=== PATIENT | female | born 2005 | race Caucasian/White ===

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

== ENCOUNTER 2024-10-11 09:41 | Outpatient (CLI) | payer OTHER, SELFPAY ==
[2024-10-11 09:47] LABS: HCT 38.3 % (36.0-46.0); HGB 12.6 g/dL (11.2-15.7); MCH 30.4 pg (27.0-33.0); MCHC 32.9 % (32.0-36.0); MCV 92 fL (80-95); Platelet Count 220 10^3/uL (130-400); RBC 4.15 10^6/uL (3.93-5.22); RDW 12.2 % (11.7-14.6); RDW-SD 41.6 fL; WBC 5.75 10^3/uL (4.4-10.8)
[2024-10-11 10:46] LABS: ALT 19 U/L (14-59); AST 20 U/L (15-37); Alkaline Phosphatase 38 U/L (46-116); Anion Gap 9.2 mmol/L (3-11); BUN 11 mg/dL (7-18); Bilirubin, Total 0.4 mg/dL (0.2-1.0); CO2 25.8 mmol/L (21.0-32.0); Calcium 8.9 mg/dL (8.5-10.1); Chloride 109 mmol/L (98-107); Estimated GFR 83.23 (mL/min/1.73m2); Glucose 87 mg/dL (74-106); Potassium 3.7 mmol/L (3.5-5.1); Sodium 144 mmol/L (136-145); TSH 4.49 uIU/mL (0.52-4.13); Total Protein 7.4 g/dL (6.4-8.2)
[2024-10-11 17:27] LABS: Thyroglobulin Antibody 218 U/mL (<=60); Thyroperoxidase Antibody 48 U/mL (<=60)
== END 2024-10-11 09:42 | disposition home or self-care (01) ==
LOC: LBO 09:43
PROVIDERS: PCP Nurse Practitioner Pediatrics; Visit Provider Nurse Practitioner Family
DX: E03.9 Hypothyroidism, unspecified (principal); F41.9 Anxiety disorder, unspecified; F32.A Depression, unspecified; R94.6 Abnormal results of thyroid function studies
CPT/HCPCS: 36415; 80053; 85027; 86376; 84439; 84443

== ENCOUNTER 2024-11-29 01:22 | Outpatient (CLI) | payer OTHER, SELFPAY ==
[2024-11-29 15:56] LABS: FREE T4 0.81 ng/dL (0.78-1.34); TSH 1.73 uIU/mL (0.52-4.13)
[2024-11-29 22:53] LABS: Thyroglobulin Antibody 189 U/mL (<=60); Thyroperoxidase Antibody 126 U/mL (<=60)
== END 2024-11-29 01:23 | disposition home or self-care (01) ==
PROVIDERS: PCP Nurse Practitioner Pediatrics; Visit Provider Nurse Practitioner Family
DX: E03.9 Hypothyroidism, unspecified (principal); R79.89 Other specified abnormal findings of blood chemistry; R76.8 Other specified abnormal immunological findings in serum
CPT/HCPCS: 36415; 86376; 84439; 84443